=== PATIENT | male | born 1975 | race Caucasian/White ===

== ENCOUNTER 2020-03-10 12:37 | Observation (INO) | payer BC ==
[2020-03-10] MEDS ORDERED: hydrALAZINE HCL 20 MG/ML 1 ML VIAL IVP STA (13:02)
--- NOTE | 2020-03-10 13:08 | ED ---
General Adult HPI - General Chief complaint: Dizziness Stated complaint: Dizziness Time Seen by Provider: 03/10/20 12:45 Source: patient, EMS, RN notes reviewed, old records reviewed Mode of arrival: EMS Limitations: no limitations - History of Present Illness Initial comments: This is a 44-year-old male who is transferred to us from urgent care facility. Patient had an episode at work where he was passed out and he felt that he was going to pass out for about 15 minutes. Patient's blood pressures also high and he is supposed to be on blood pressure medicines but he does not take them. Patient states since the incident he's felt a little foggy but other than that feels pretty good. Patient to CAT scan of the other facility which was of his h ead and it was normal. Patient denied any chest pain patient denies shortness of breath or difficulty breathing. Patient denies any palpitations. Patient denies any abdominal pain patient has nausea vomiting diarrhea. Patient denies any recent fever chills or cough. Patient denies any swelling to the legs or calf tenderness. - Related Data Home Medications Medication Instructions Recorded Confirmed No Known Home Medications 03/10/20 03/10/20 Allergies Allergy/AdvReac Type Severity Reaction Status Date / Time No Known Allergies Allergy Verified 03/10/20 13:45 Review of Systems ROS Statement: Those systems with pertinent positive or pertinent negative responses have been documented in the HPI. ROS Other: All systems not noted in ROS Statement are negative. Past Medical History Past Medical History: Hypertension History of Any Multi-Drug Resistant Organisms: None Reported Past Surgical History: Bariatric Surgery Past Psychological History: No Psychological Hx Reported Smoking Status: Never smoker Past Alcohol Use History: None Reported Past Drug Use History: None Reported General Exam - General Exam Comments Initial Comments: GENERAL: Patient is well-developed and well-nourished. Patient is nontoxic and well- hydrated and is in mild distress. ENT: Neck is soft and supple. No significant lymphadenopathy is noted. Oropharynx is clear. Moist mucous membranes. Neck has full range of motion without eliciting any pain. EYES: The sclera were anicteric and conjunctiva were pink and moist. Extraocular movements were intact and pupils were equal round and reactive to light. Eyelids were unremarkable. PULMONARY: Unlabored respirations. Good breath sounds bilaterally. No audible rales rhonchi or wheezing was noted. CARDIOVASCULAR: There is a regular rate and rhythm without any murmurs gallops or rubs. ABDOMEN: Soft and nontender with normal bowel sounds. No palpable organomegaly was noted. There is no palpable pulsatile mass. SKIN: Skin is clear with no lesions or rashes and otherwise unremarkable. NEUROLOGIC: Patient is alert and oriented x3. Cranial nerves II through XII are grossly intact. Motor and sensory are also intact. Normal speech, volume and content. Symmetrical smile. . MUSCULOSKELETAL: Normal extremities with adequate strength and full range of motion. No lower extremity swelling or edema. No calf tenderness. LYMPHATICS: No significant lymphadenopathy is noted PSYCHIATRIC: Normal psychiatric evaluation. Limitations: no limitations Course Vital Signs 03/10/20 03/10/20 03/10/20 12:42 13:02 13:29 Temperature 98.9 F Pulse Rate 71 Respiratory 18 Rate Blood Pressure 172/115 159/109 162/106 O2 Sat by Pulse 97 Oximetry 03/10/20 03/10/20 03/10/20 13:30 14:02 14:14 Temperature Pulse Rate 91 51 L Respiratory 18 Rate Blood Pressure 164/102 94/51 O2 Sat by Pulse 96 Oximetry 03/10/20 14:18 Temperature Pulse Rate 75 Respiratory 18 Rate Blood Pressure 149/95 O2 Sat by Pulse 97 Oximetry Medical Decision Making - Medical Decision Making EKG shows normal sinus rhythm at 96 bpm ND interval 152 QRS is 104 QT interval 366 QTC is 462. Patient's EKG shows no ST segment elevation or depression or T wave abnormalities are noted. Patient received a dose of hydralazine for the high blood pressure at about 40 minutes after he received that he became lightheaded and almost passed out and his blood pressure dropped down to 98 only stayed there for a minute or 2 and then came back up to its baseline. Patient currently feels back to his baseline as well. Patient stated he felt no pain no shortness of breath no palpitations. Patient's heart rate did not change on the monitor - Lab Data Lab Results 03/10/20 03/10/20 Range/Units 13:00 13:00 D-Dimer 0.19 (<0.60) mg/L FEU Troponin I <0.012 (0.000-0.034) ng/mL Disposition Clinical Impression: Hypertensive urgency, Near syncope Disposition: ADMITTED IP TO THIS HOSP Referrals: Inocencio Richards MD [Primary Care Provider] - 1-2 days Time of Disposition: 14:24
[2020-03-10] MEDS ORDERED: SODIUM CHLORIDE 0.9% 500 ML 500 ML IV STA (14:43)
[2020-03-10] MEDS ORDERED: ACETAMINOPHEN TAB 500 MG TAB PO PRN (16:29)
[2020-03-10] MEDS ORDERED: ALPRAZolam 0.25 MG TAB PO PRN (16:29)
[2020-03-10] MEDS ORDERED: TEMAZEPAM 15 MG CAP PO PRN (16:29)
[2020-03-10] MEDS ORDERED: cloNIDine HCL 0.1 MG TAB PO PRN (16:29)
[2020-03-10] MEDS: lisinopriL 10 MG TAB PO SCH ×2 (16:40→21:44)
[2020-03-10] MEDS: amLODIPine 10 MG TAB PO SCH (16:40)
--- NOTE | 2020-03-10 17:23 | US ---
EXAMINATION TYPE: US carotid duplex BILAT DATE OF EXAM: 03/10/2020 COMPARISON: NONE CLINICAL HISTORY: stroke. Pt states weakness, syncope EXAM MEASUREMENTS: RIGHT: Peak Systolic Velocity (PSV) cm/sec ----- Right CCA: 125.8 ----- Right ICA: 85.6 ----- Right ECA: 99.5 ICA/CCA ratio: 0.7 RIGHT: End Diastole cm/sec ----- Right CCA: 24.1 ----- Right ICA: 26.3 ----- Right ECA: 14.1 LEFT: Peak Systolic Velocity (PSV) cm/sec ----- Left CCA: 147.0 ----- Left ICA: 68.8 ----- Left ECA: 95.3 ICA/CCA ratio: 0.5 LEFT: End Diastole cm/sec ----- Left CCA: 24.8 ----- Left ICA: 30.3 ----- Left ECA: 16.3 VERTEBRALS (direction of flow): Right Vertebral: Antegrade Left Vertebral: Antegrade Rhythm: Normal No significant stenosis seen IMPRESSION: There is antegrade flow in the vertebral arteries. The images and measurements suggest less than 10% stenosis in both internal carotid arteries. Criteria for Assigning % of Stenosis / Diameter reduction (Estimation based on the indirect measurements of the internal carotid artery velocities (ICA PSV). 1. Normal (no stenosis)=ICA PSV < 125 cm/s: ratio < 2.0: ICA EDV<40 cm/s. 2. Less than 50% stenosis=ICA PSV < 125 cm/s: ratio < 2.0: ICA EDV<40 cm/s. 3. 50 to 69% stenosis=ICA PSV of 125 to 230 cm/s: ration 2.0 ? 4.0: ICA EDV 40-100 cm/s. 4. Greater than 70% stenosis to near occlusion= ICA PSV > 230 cm/s: ratio > 4.0: ICA EDV > 100 cm/s. 5. Near occlusion= ICA PSV velocities may be low or undetectable: variable ratio and ICA EDV. 6. Total occlusion=unable to detect flow.
--- NOTE | 2020-03-10 18:51 | HP ---
HISTORY AND PHYSICAL DATE OF SERVICE: 03/10/2020 CHIEF COMPLAINTS: Dizziness and presyncope. HISTORY OF PRESENT ILLNESS: This 44-year-old gentleman with a past medical history of multiple medical problems, including hypertension, history of bariatric surgery, being followed by Dr. Cliff Richards in the outpatient setting, was sitting in his office. The patient felt dizzy, almost like passing out. It lasted for about 5 minutes. Patient had recurrence of symptoms. Also blood pressure was found to be high. After hydralazine, however, the blood pressure went down to 94/54 and the patient was also bradycardic. Patient was admitted for further evaluation and treatment. Patient had a similar episode about 5 years ago and was evaluated at [facility]. They did not find any particular cause for that, according to the family. Reports are not available at this time. There is no history of any fever, rigor or chills. No history of any chest pain, palpitations, hematochezia or melena at this time. PAST MEDICAL HISTORY: Hypertension, history of bariatric surgery. MEDICATIONS PRIOR TO ADMISSION: None. ALLERGIES: NONE. FAMILY HISTORY: No history of heart disease or strokes in the family. SOCIAL HISTORY: No history of smoking. Occasional alcohol intake. REVIEW OF SYSTEMS: ENT: As mentioned earlier. CARDIOVASCULAR SYSTEM: No angina, palpitations. RESPIRATORY SYSTEM: No cough, hemoptysis. GI: No nausea, vomiting. : No dysuria or retention. NERVOUS SYSTEM: As mentioned earlier. ALLERGY/IMMUNOLOGY: No asthma, hayfever. MUSCULOSKELETAL: As mentioned earlier. HEMATOLOGY/ONCOLOGY: No history of anemia. ENDOCRINE: No history of diabetes, hypothyroidism. CONSTITUTIONAL: As mentioned earlier. DERMATOLOGY: Negative. RHEUMATOLOGY: Negative. PSYCHIATRY: As mentioned earlier. PHYSICAL EXAMINATION: Patient alert and oriented x3. Pulse is 82, blood pressure 173/116, respiration 20, temperature 98.2, pulse ox 97% on room air. HEENT: Conjunctivae normal. Oral mucosa moist. NECK: No jugular venous distention. No carotid bruit. No lymph node enlargement. CARDIOVASCULAR SYSTEM: S1, S2 muffled. No S3. No S4. RESPIRATORY SYSTEM: Breath sounds diminished at the bases. No rhonchi. No crackles. ABDOMEN: Soft, non-tender. No mass palpable. LEGS: No edema. No swelling. NERVOUS SYSTEM: Higher functions as mentioned earlier. Moves all 4 limbs. No focal motor or sensory deficit. LYMPHATICS: No lymph node palpable in neck, axillae or groin. SKIN: No ulcer, rash, bleeding. JOINTS: No active deforming arthropathy. LABS: D-dimer is 0.19. Troponin less than 0.012. EKG shows ST-T changes. ASSESSMENT: 1. Dizziness for evaluation; possibly accelerated hypertension and hypertensive urgency. 2. Rule out transient ischemic attack. 3. Rule out cardiac arrhythmia. 4. Hypertension. 5. Obesity with body mass index of 44.9. 6. History of bariatric surgery. RECOMMENDATIONS AND DISCUSSION: In this 44-year-old gentleman who presented with multiple medical issues, at this time I recommend to continue current medications, continue symptomatic treatment. Otherwise, p.r.n. hydralazine. Cardiology and neurology evaluations. Will initiate antihypertensive medications. Basic evaluation, including carotid Doppler and ultrasound. Cholesterol panel. The prognosis is guarded because of the multiple complex medical issues. Further recommendations to follow. A copy of this dictation is being forwarded to Dr. Cliff Richards, who is the primary physician. MMODL / IJN: [id number] /
[2020-03-10] MEDS: HEPARIN SODIUM,PORCINE 5,000 UNIT/ML 1 ML VIAL SQ SCH (21:44)
[2020-03-11 06:23] LABS: Basophils % (A) 0 %; Eosinophils # (A) 0.4 k/uL (0-0.7); Eosinophils % (A) 4 %; HCT 43.5 % (39.0-53.0); HGB 14.5 gm/dL (13.0-17.5); Lymphocytes % (A) 20 %; MCH 29.5 pg (25.0-35.0); MCHC 33.3 g/dL (31.0-37.0); MCV 88.6 fL (80.0-100.0); Monocytes # (A) 0.7 k/uL (0-1.0); Monocytes % (A) 6 %; Neutrophils # (A) 6.8 k/uL (1.3-7.7); Neutrophils % (A) 68 %; Platelet Count 217 k/uL (150-450); RBC 4.92 m/uL (4.30-5.90); RDW 13.8 % (11.5-15.5)
[2020-03-11] MEDS: PANTOPRAZOLE 40 MG TABLET PO SCH (06:31)
[2020-03-11 06:36] LABS: African American GFR (CKD) >90 (>60 ml/min/1.73 sqM); Anion Gap 8 mmol/L; Blood Urea Nitrogen 14 mg/dL (9-20); Calcium 9.1 mg/dL (8.4-10.2); Carbon Dioxide 25 mmol/L (22-30); Chloride 105 mmol/L (98-107); Cholesterol 177 mg/dL (<200); Glucose 110 mg/dL (74-99); HDL Cholesterol 30 mg/dL (40-60); LDL Cholesterol,Calculated 118 mg/dL (0-99); Non-African American GFR(CKD) 89 (>60 ml/min/1.73 sqM); Potassium 4.1 mmol/L (3.5-5.1); Sodium 138 mmol/L (137-145); Triglycerides 143 mg/dL (<150)
[2020-03-11] MEDS: amLODIPine 10 MG TAB PO SCH (08:52)
[2020-03-11] MEDS: lisinopriL 10 MG TAB PO SCH ×2 (08:52→20:13)
[2020-03-11] MEDS: HEPARIN SODIUM,PORCINE 5,000 UNIT/ML 1 ML VIAL SQ SCH ×2 (08:53→20:14)
--- NOTE | 2020-03-11 10:00 | ECHOF ---
Referral Reason:Stroke MEASUREMENTS -------- HEIGHT: 185.4 cm WEIGHT: 158.8 kg BP: RVIDd: 3.3 cm (< 3.3) IVSd: 1.6 cm (0.6 - 1.1) LVIDd: 4.4 cm (3.9 - 5.3) LVPWd: 1.8 cm (0.6 - 1.1) IVSs: 2.1 cm LVIDs: 2.0 cm LVPWs: 2.3 cm LA Diam: 2.7 cm (2.7 - 3.8) Ao Diam: 3.6 cm (2.0 - 3.7) AV Cusp: 2.0 cm (1.5 - 2.6) MV EXCURSION: 24.989 mm (> 18.000) MV EF SLOPE: 81 mm/s (70 - 150) EPSS: 0.4 cm MV E Rodriguez: 0.49 m/s MV DecT: 227 ms MV A Rodriguez: 0.71 m/s MV E/A Ratio: 0.69 RAP: 5.00 mmHg RVSP: 9.42 mmHg FINDINGS -------- Sinus rhythm. Morbid Obesity There is severe concentric left ventricular hypertrophy. Overall left ventricular systolic function is normal with, an EF between 55 - 60 %. The right ventricle is normal in size. The left atrial size is normal. The right atrial size is normal. 5.0mg OF Lumason UTLIZED: 2 OR MORE WALL SEGMENTS NOT VISUALIZED. The aortic valve was not well visualized. Mild mitral regurgitation is present. Mild tricuspid regurgitation present. Right ventricular systolic pressure is normal at < 35 mmHg. The pulmonic valve was not well visualized. The aortic root size is normal. There is a trivial pericardial effusion present. CONCLUSIONS -------- 1. Sinus rhythm. 2. Morbid Obesity 3. There is severe concentric left ventricular hypertrophy. 4. Overall left ventricular systolic function is normal with, an EF between 55 - 60 %. 5. The right ventricle is normal in size. 6. The left atrial size is normal. 7. The right atrial size is normal. 8. 5.0mg OF Lumason UTLIZED: 2 OR MORE WALL SEGMENTS NOT VISUALIZED. 9. The aortic valve was not well visualized. 10. Mild mitral regurgitation is present. 11. Mild tricuspid regurgitation present. 12. Right ventricular systolic pressure is normal at < 35 mmHg. 13. The pulmonic valve was not well visualized. 14. There is a trivial pericardial effusion present. [employer]: Bri Sheridan RDCS
--- NOTE | 2020-03-11 10:34 | P.CRDCN ---
History of Present Illness History of present illness: HISTORY OF PRESENTING ILLNESS This is a pleasant 44-year-old male past medical history significant for hypertension, morbid obesity family history of premature coronary artery dis ease. 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 He does not currently take prescribed lisinopril. We have been asked to see in consultation for near- syncope. He states yesterday while at work he started feeling acutely light headed like he was going to pass out. Lasted acutely for about 5 minutes and did improve but he still didn't feel entirely normal. He went to urgent care initially and was transferred here for further evaluation due to ongoing hypertension. On arrival here blood pressure was 172/115. He has been diagnosed with hypertension in the past and was taking lisinopril, but has stopped taking it. He was given 20 mg of IV hydralazine in the emergency department which d ropped his blood pressure 94/51. He states he had an episode of feeling extremely lightheaded similar to how he felt earlier that morning. He was diaphoretic and nauseated. He denies having symptoms of chest discomfort, shortness of breath or palpitations. Echocardiogram obtained reveals preserved LV systolic function with ejection fraction 55-60%, mild MR and mild TR noted. There is severe concentric LVH. He has been initiated on amlodipine 10 mg daily and lisinopril 10 mg twice a day. DIAGNOSTICS EKG reveals sinus mechanism with T-wave inversions in the high lateral leads on initial EKG and T-wave inversions in the lateral leads and repeat this morning. Carotid doppler reveals antegrade flow in the vertebral arteries, less than 10% stenosis bilaterally of the carotids. Laboratory reviewed, CBC unremarkable, d-dimer 0.19, sodium 138, potassium 4.1, creatinine 1.02, cardiac enzymes negative 2, LDL 118. He currently takes no daily cardiac medications. REVIEW OF SYSTEMS At the time of my exam: CONSTITUTIONAL: Denies fever or chills. CARDIOVASCULAR: Denies chest pain, shortness of breath, orthopnea, PND or palpitations. RESPIRATORY: Denies cough. GASTROINTESTINAL: Denies abdominal pain, diarrhea, constipation, nausea or vomiting. MUSCULOSKELETAL: Denies myalgias. NEUROLOGIC: Denies numbness, tingling or weakness. ENDOCRINE: Denies fatigue, weight change, polydipsia or polyurina. GENITOURINARY: Denies burning, hematuria or urgency with micturation. HEMATOLOGIC: Denies history of anemia or bleeding. PHYSICAL EXAMINATION Blood pressure 157/90 heart rate 81 afebrile and maintaining oxygen saturation on room air. CONSTITUTIONAL: No apparent distress. Morbidly obese. HEENT: Head is normocephalic. Pupils are equal, round. Sclerae anicteric. Mucous membranes of the mouth are moist. No JVD. No carotid bruit. CHEST EXAMINATION: Lungs are clear to auscultation. No chest wall tenderness is noted on palpation or with deep breathing. HEART EXAMINATION: Regular rate and rhythm. S1, S2 heard. No murmurs, gallops or rub. ABDOMEN: Soft, nontender. Positive bowel sounds. EXTREMITIES: 2+ peripheral pulses, no lower extremity edema and no calf tenderness. NEUROLOGIC EXAMINATION: Patient is awake, alert and oriented x3. ASSESSMENT Near syncope Uncontrolled hypertension Morbid obesity, BMI 44 Noncompliance PLAN An acute coronary event has some ruled out. Recommend proceeding with stress echocardiogram to assess for stress-induced cardiac ischemia. On discharge apply an event monitor to assess for an acute arrhythmia. The importance of anti-hypertensive therapy compliance discussed at length. Recommend lifestyle modifications for lowering of LDL cholesterol and weight loss. Thank you kindly for this consultation. Nurse Practitioner note has been reviewed, I agree with a documented findings and plan of care. Patient was seen and examined. Past Medical History Past Medical History: Hypertension History of Any Multi-Drug Resistant Organisms: None Reported Past Surgical History: Bariatric Surgery Past Anesthesia/Blood Transfusion Reactions: No Reported Reaction Past Psychological History: No Psychological Hx Reported Smoking Status: Never smoker Past Alcohol Use History: None Reported Past Drug Use History: None Reported Medications and Allergies Home Medications Medication Instructions Recorded Confirmed Type No Known Home Medications 03/10/20 03/10/20 History Allergies Allergy/AdvReac Type Severity Reaction Status Date / Time No Known Allergies Allergy Verified 03/10/20 13:45 Physical Exam Vitals: Vital Signs Temp Pulse Pulse Resp BP BP BP 03/11/20 03:00 98 F 81 18 157/90 03/10/20 21:00 98 F 80 18 151/94 03/10/20 18:08 91 154/101 03/10/20 16:38 76 162/99 03/10/20 15:30 80 168/112 03/10/20 15:24 98.2 F 82 20 173/116 03/10/20 15:00 80 20 03/10/20 14:48 75 16 158/99 03/10/20 14:18 75 18 149/95 03/10/20 14:14 51 L 94/51 03/10/20 14:02 164/102 03/10/20 13:30 91 18 03/10/20 13:29 162/106 03/10/20 13:02 159/109 03/10/20 12:42 98.9 F 71 18 172/115 Pulse Ox 03/11/20 03:00 95 03/10/20 21:00 95 03/10/20 18:08 03/10/20 16:38 03/10/20 15:30 03/10/20 15:24 97 03/10/20 15:00 03/10/20 14:48 98 03/10/20 14:18 97 03/10/20 14:14 03/10/20 14:02 03/10/20 13:30 96 03/10/20 13:29 03/10/20 13:02 03/10/20 12:42 97 Intake and Output 03/10/20 03/11/20 03/11/20 22:59 06:59 14:59 Intake Total 1640 450 Balance 1640 450 Intake: Amount of Fluid Infused ( 500 ml) Oral 1140 450 Other: Voiding Method Toilet Toilet # Voids 2 1 Weight 158.757 kg Results 03/11/20 06:10 03/11/20 06:10 Cardiac Enzymes 03/10/20 Range/Units 13:00 Troponin I <0.012 (0.000-0.034) ng/mL Lipids 03/11/20 Range/Units 06:10 Triglycerides 143 (<150) mg/dL Cholesterol 177 (<200) mg/dL HDL Cholesterol 30 L (40-60) mg/dL CBC 03/11/20 Range/Units 06:10 WBC 10.0 (3.8-10.6) k/uL RBC 4.92 (4.30-5.90) m/uL Hgb 14.5 (13.0-17.5) gm/dL Hct 43.5 (39.0-53.0) % Plt Count 217 (150-450) k/uL Comprehensive Metabolic Panel 03/11/20 Range/Units 06:10 Sodium 138 (137-145) mmol/L Potassium 4.1 (3.5-5.1) mmol/L Chloride 105 (98-107) mmol/L Carbon Dioxide 25 (22-30) mmol/L BUN 14 (9-20) mg/dL Creatinine 1.02 (0.66-1.25) mg/dL Glucose 110 H (74-99) mg/dL Calcium 9.1 (8.4-10.2) mg/dL Current Medications Generic Name Dose Route Start Last Admin Trade Name Freq PRN Reason Stop Dose Admin Acetaminophen 500 mg 03/10/20 16:29 03/10/20 21:41 Tylenol Tab PO 500 mg Q6HR PRN Administration Fever and/ or Pain Alprazolam 0.25 mg 03/10/20 16:29 Xanax PO TID PRN Anxiety Amlodipine Besylate 10 mg 03/10/20 16:30 03/10/20 16:40 Norvasc PO 10 mg DAILY STEVIE Administration Clonidine 0.1 mg 03/10/20 16:29 03/11/20 06:31 Catapres PO 0.1 mg Q4HR PRN Administration Hypertension Heparin Sodium (Porcine) 5,000 unit 03/10/20 21:00 03/10/20 21:44 Heparin SQ Not Given Q12HR STEVIE Lisinopril 10 mg 03/10/20 16:28 03/10/20 21:44 Zestril PO 10 mg BID STEVIE Administration Pantoprazole Sodium 40 mg 03/11/20 07:30 03/11/20 06:31 Protonix PO 40 mg [id number] STEVIE Administration Temazepam 15 mg 03/10/20 16:29 Restoril PO HS PRN Insomnia Intake and Output 03/10/20 03/11/20 03/11/20 22:59 06:59 14:59 Intake Total 1640 450 Balance 1640 450 Intake: Amount of Fluid Infused ( 500 ml) Oral 1140 450 Other: Voiding Method Toilet Toilet # Voids 2 1 Weight 158.757 kg 03/11/20 06:10 03/11/20 06:10
--- NOTE | 2020-03-11 10:57 | P.CNNES ---
History of Present Illness Consult date: 03/10/20 Requesting physician: Lindsay Manzo Reason for Consult: Near syncope History of Present Illness: Patient is a 44-year-old male, who was transferred from an urgent care facility after he had an episode at work where he had a near syncopal episode. Patient states that this morning he woke up, was feeling fine, took shower, and went to work and arrived at 8:10 AM. Shortly after he was sitting in the desk, when he felt dizzy, lightheaded and everything started closing on him. These bad symptoms lasted for 5 minutes and then took another 5-10 minutes for the symptoms to slowly improve. There was no chest pain or shortness of breath. Denies any focal symptoms like slurred speech facial droop double vision, focal numbness tingling or weakness. He himself drove to an urgent care. Patient underwent computed tomography scan of the head which was normal. EKG showed normal sinus rhythm. Blood pressure on arrival was 192/79. Chest x-ray negative. Patient had CBC, UA, PT/PTT, Chem-20 and troponin all normal or negative. Patient was transferred to [facility] for further evaluation. When patient arrived to [facility], his blood pressure was 172/115 and pulse rate of 71. He was given some medication for high blood pressure. Shortly after in the ER, patient was sitting when suddenly he started feeling similar symptoms of lightheadedness, dizziness and near syncopal. Apparently his blood pressure joana pped to 94/51 and heart rate dropped to 51 at the time when he was symptomatic. (Just prior to giving medication, his blood pressure was 164/102 and pulse rate 91). The symptoms lasted for 5-7 minutes and then resolved. Patient was admitted for further observation. At present he feels perfectly fine. Denies any focal symptoms. He states that once before, about 5 years ago he had a similar event when he was sitting for his son's event, did not feel good, almost passed out. He was taken to the hospital, and underwent some testing and was observed and released. No cause was found. Carotid Doppler showed antegrade flow in vertebral arteries. No significant stenosis. Patient's CBC, Chem-7 is normal. Total cholesterol 177, LDL 118, HDL 30 and triglycerides 143. Troponin negative. Review of Systems At present completely unremarkable. All 14 point review of systems reviewed and unremarkable. Past Medical History Past Medical History: Hypertension History of Any Multi-Drug Resistant Organisms: None Reported Past Surgical History: Bariatric Surgery Past Anesthesia/Blood Transfusion Reactions: No Reported Reaction Past Psychological History: No Psychological Hx Reported Smoking Status: Never smoker Past Alcohol Use History: None Reported Past Drug Use History: None Reported Medications and Allergies Home Medications Medication Instructions Recorded Confirmed Type No Known Home Medications 03/10/20 03/10/20 History Allergies Allergy/AdvReac Type Severity Reaction Status Date / Time No Known Allergies Allergy Verified 03/10/20 13:45 Physical Examination - Vital Signs Vital Signs: Vital Signs Temp Pulse Pulse Resp BP BP BP 03/10/20 18:08 91 154/101 03/10/20 16:38 76 162/99 03/10/20 15:30 80 168/112 03/10/20 15:24 98.2 F 82 20 173/116 03/10/20 15:00 80 20 03/10/20 14:48 75 16 158/99 03/10/20 14:18 75 18 149/95 03/10/20 14:14 51 L 94/51 03/10/20 14:02 164/102 03/10/20 13:30 91 18 03/10/20 13:29 162/106 03/10/20 13:02 159/109 03/10/20 12:42 98.9 F 71 18 172/115 Pulse Ox 03/10/20 18:08 03/10/20 16:38 03/10/20 15:30 03/10/20 15:24 97 03/10/20 15:00 03/10/20 14:48 98 03/10/20 14:18 97 03/10/20 14:14 03/10/20 14:02 03/10/20 13:30 96 03/10/20 13:29 03/10/20 13:02 03/10/20 12:42 97 Intake and Output 03/10/20 03/10/20 03/10/20 06:59 14:59 22:59 Intake Total 740 Balance 740 Intake: Amount of Fluid Infused ( 500 ml) Oral 240 Other: Voiding Method Toilet Weight 158.757 kg 158.757 kg On examination patient is a middle aged male, in no acute distress. Patient is alert awake oriented to time pleasant person. Speech and language functions are normal. Attention and concentration fund of knowledge is adequate. On cranial nerve examination pupils are round and reactive to light, visual jett are full on confrontation. Extraocular muscles are intact with no nystagmus. Face is symmetric, tongue protrudes the midline. Palatal elevation and sensation normal. Hearing and shoulder shrug normal. On muscle strength testing there is no pronator drift and the strength is normal in arms and legs distally and proximally. Reflexes are 1+ and plantars downgoing. Sensory touch is equal. No ataxia for [id number] testing. Tone and bulk of muscles normal. Gait normal. No obvious bruit, S1 and S2 audible. Abdomen soft nontender. Chest is clear. Results - Laboratory Findings CBC and BMP: 03/11/20 06:10 03/11/20 06:10 Assessment and Plan Assessment: * Near syncopal spells 2. The first one was probably related to uncontrolled blood pressure. The second one (while in the ER) likely occurred due to acute drop in pulse and blood pressure after receiving hydralazine IV. * Hypertension, uncontrolled * Obesity * Noncompliance * Dyslipidemia Plan: * Patient had a normal carotid Doppler. * Patient's computed tomography scan of the head, current neurological examination are normal. * No other neurological workup indicated. * Cardiology on board to address hypertension, and to rule out cardiac event.
--- NOTE | 2020-03-11 12:33 | P.STRESS ---
- Stress Test Note Stress Test Results/Findings: Exam Performed: stress echo exercise with con Exam Date: 03/11/20 Reason for Exam: DIZZINESS Height: 6 ft 2 in Weight: 158.76 kg Protocol: EMANUEL Stage: 3 Duration of Exercise: 6:25 Resting Heart Rate: 89 Resting Blood Pressure: 143/93 Maximum Achieved Heart Rate: 159 Maximum Achieved Blood Pressure: 220/65 85% PMHR: 150 100% PMHR: 176 METS: 7.7 Technologist Comment: Stress Test Results/Findings: This is a 44-year-old gentleman with symptoms of exertional shortness of breath, being evaluated for cardiac status. Patient also has family history of ischemic heart disease. Stress data.: Baseline EKG showed sinus rhythm with normal SD and QRS duration. Blood pressure at rest is 143/93 with pulse rate of 89. Patient walked on a Emanuel protocol for 6 minutes and 25 seconds achieving a maximal rate of 159 with a blood pressure 220/65. EKGs taken during and after exercise did not reveal any significant changes from baseline. Echo data: Baseline echo images showed normal wall motion and thickening. Exercise echo images showed augmentation of wall motion and thickening in all th e segments. Final impression: #1. Negative stress test #2. Negative stress echo
[2020-03-11] MEDS: ATORVASTATIN 10 MG TAB PO SCH (14:32)
--- NOTE | 2020-03-11 16:23 | PN ---
PROGRESS NOTE DATE OF SERVICE: 03/11/2020 This 44-year-old gentleman admitted with dizziness and presyncope also had hypertensive urgency. Cardiology has seen the patient. A stress was also done. A 2D echo with Doppler done today showed ejection fraction about 55% to 60%. The stress test was read as showing no abnormality in the stress echo in the exercise-induced images. The patient also had a neurology evaluation and a carotid Doppler was also done. Carotid Doppler showed less than 10% stenosis in both internal carotid arteries. No chest pain. No palpitations. No fever. PHYSICAL EXAMINATION: Alert and oriented x3. Pulse 75, blood pressure 131/84, respirations 16, temperature 98.5, pulse ox 95% on room air. HEENT: Conjunctivae normal. NECK: No jugular venous distention. CARDIOVASCULAR SYSTEM: S1, S2 muffled. RESPIRATORY SYSTEM: Breath sounds diminished at the bases. No rhonchi. No crackles. ABDOMEN: Soft, non-tender. LEGS: No edema. No swelling. NERVOUS SYSTEM: No focal deficit. LABS: CBC within normal limits. LDL is 118. Glucose 110. ASSESSMENT: 1. Dizziness for evaluation, possibly accelerated hypertension with hypertensive urgency. 2. Rule out transient ischemic attack. 3. Rule out cardiac arrhythmia. 4. Negative stress echo currently. 5. Hypertension. 6. Hyperlipidemia. 7. Obesity with body mass index of 44.9. 8. History of bariatric surgery. RECOMMENDATIONS AND DISCUSSION: I recommend to continue current medications, continue with the monitoring, symptomatic treatment. I would recommend a small dose of Lipitor and continue with the Norvasc as well as lisinopril and p.r.n. medications. Prognosis is guarded because of multiple complex medical issues. Further recommendations to follow. Increase ambulation. PT/OT evaluation. Neurology input appreciated. MMODL / IJN: [id number] /
--- NOTE | 2020-03-11 18:56 | P.PN ---
Subjective Progress Note Date: 03/11/20 Patient feels fine. Offers no new complaints. No further syncopal spells or near syncope. No dizziness. Patient states he had undergone bariatric surgery in 2010. He was 400 pounds prior to the surgery. He lost weight down to 310 pounds, but has recently gained weight to 350 pounds. Objective - Vital Signs Vital signs: Vital Signs Temp 98.1 F 03/11/20 15:57 Pulse 85 03/11/20 15:57 Resp 16 03/11/20 15:57 BP 126/84 03/11/20 15:57 Pulse Ox 94 L 03/11/20 15:57 Intake & Output 03/10/20 03/11/20 03/11/20 18:59 06:59 18:59 Intake Total 740 1350 250 Balance 740 1350 250 Weight 158.757 kg 158.76 kg Intake: Amount of Fluid Infused ( 500 ml) Oral 240 1350 250 Other: Voiding Method Toilet Toilet Toilet # Voids 1 2 - Exam Nonfocal. - Labs CBC & Chem 7: 03/11/20 06:10 03/11/20 06:10 Labs: Abnormal Lab Results - Last 24 Hours (Table) 03/11/20 Range/Units 06:10 Glucose 110 H (74-99) mg/dL LDL Cholesterol, Calc 118 H (0-99) mg/dL HDL Cholesterol 30 L (40-60) mg/dL Assessment and Plan Assessment: * Near syncopal spells 2. The first one was probably related to uncontrolled blood pressure. The second one (while in the ER) likely occurred due to acute drop in pulse and blood pressure after receiving hydralazine IV. * Hypertension, uncontrolled * Obesity * Noncompliance * Dyslipidemia Plan: * Patient had a normal carotid Doppler. * Patient's computed tomography scan of the head, current neurological examination are normal. * No other neurological workup indicated. * Cardiology on board. Stress test normal. Patient will undergo placement of event monitor for 2 weeks. * Neurology will sign off. Please call neurology if any other concerns.
[2020-03-12] MEDS: PANTOPRAZOLE 40 MG TABLET PO SCH (06:36)
[2020-03-12 07:16] LABS: Basophils # (A) 0.1 k/uL (0-0.2); Basophils % (A) 1 %; Eosinophils # (A) 0.4 k/uL (0-0.7); Eosinophils % (A) 4 %; HCT 44.2 % (39.0-53.0); HGB 14.8 gm/dL (13.0-17.5); Lymphocytes # (A) 1.9 k/uL (1.0-4.8); Lymphocytes % (A) 20 %; MCH 29.6 pg (25.0-35.0); MCHC 33.4 g/dL (31.0-37.0); MCV 88.5 fL (80.0-100.0); Monocytes # (A) 0.7 k/uL (0-1.0); Monocytes % (A) 7 %; Neutrophils # (A) 6.4 k/uL (1.3-7.7); Neutrophils % (A) 67 %; Platelet Count 202 k/uL (150-450); RBC 4.99 m/uL (4.30-5.90); RDW 13.9 % (11.5-15.5); WBC 9.6 k/uL (3.8-10.6)
[2020-03-12 07:26] LABS: Calcium 9.2 mg/dL (8.4-10.2); Potassium 4.2 mmol/L (3.5-5.1)
[2020-03-12] MEDS: amLODIPine 10 MG TAB PO SCH (08:33)
[2020-03-12] MEDS: ATORVASTATIN 10 MG TAB PO SCH (08:33)
[2020-03-12] MEDS: lisinopriL 10 MG TAB PO SCH (08:34)
[2020-03-12 08:36] VITALS: RESP 16
[2020-03-12] MEDS ORDERED: lisinopriL 10 MG TAB PO STA (09:05)
[2020-03-12] MEDS: HEPARIN SODIUM,PORCINE 5,000 UNIT/ML 1 ML VIAL SQ SCH (12:03)
--- NOTE | 2020-03-12 12:58 | P.PN ---
Subjective HISTORY OF PRESENTING ILLNESS This is a pleasant 44-year-old male past medical history significant for hypertension, morbid obesity family history of premature coronary artery disease. 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 He underwent a stress test yesterday that was unremarkable and negative for stress induced ischemia. Event monitor was applied. Blood pressures have continued to be mildly elevated. This morning as 166/104. Currently maintained on lisinopril 10 mg BID and amlodipine 10 mg daily. He is seen and examined sitting up in bed in no acute distress. He denies chest pain, shortness of breath, dizziness or palpitations. PHYSICAL EXAMINATION CONSTITUTIONAL: No apparent distress. Morbidly obese. HEENT: Head is normocephalic. Pupils are equal, round. Sclerae anicteric. Mucous membranes of the mouth are moist. No JVD. No carotid bruit. CHEST EXAMINATION: Lungs are clear to auscultation. No chest wall tenderness is noted on palpation or with deep breathing. HEART EXAMINATION: Regular rate and rhythm. S1, S2 heard. No murmurs, gallops or rub. EXTREMITIES: 2+ peripheral pulses, no lower extremity edema and no calf tenderness. ASSESSMENT Near syncope Uncontrolled hypertension Morbid obesity, BMI 44 Noncompliance PLAN Increase lisinopril to 20 mg BID. Stable for discharge. Event monitor applied, follow up with Dr. Woodward in 2-3 weeks. Nurse Practitioner note has been reviewed, I agree with a documented findings and plan of care. Patient was seen and examined. Objective - Vital Signs Vital signs: Vital Signs Temp 98.1 F 03/12/20 08:00 Pulse 72 03/12/20 08:00 Resp 16 03/12/20 08:00 BP 166/104 03/12/20 08:00 Pulse Ox 98 03/12/20 08:00 Intake & Output 03/11/20 03/12/20 03/12/20 18:59 06:59 18:59 Intake Total 250 900 Balance 250 900 Weight 158.76 kg Intake: Oral 250 450 Blood Product 450 Other: Voiding Method Toilet Toilet Toilet # Voids 2 2 2 - Labs CBC & Chem 7: 03/12/20 06:39 03/12/20 06:39 Labs: Abnormal Lab Results - Last 24 Hours (Table) 03/12/20 Range/Units 06:39 Glucose 103 H (74-99) mg/dL
--- NOTE | 2020-03-12 13:54 | ECHOS ---
Stress Test Results/Findings: Exam Performed: stress echo exercise with con Exam Date: 03/11/20 Reason for Exam: DIZZINESS Height: 6 ft 2 in Weight: 158.76 kg Protocol: EMANUEL Stage: 3 Duration of Exercise: 6:25 Resting Heart Rate: 89 Resting Blood Pressure: 143/93 Maximum Achieved Heart Rate: 159 Maximum Achieved Blood Pressure: 220/65 85% PMHR: 150 100% PMHR: 176 METS: 7.7 Technologist Comment: Stress Test Results/Findings: This is a 44-year-old gentleman with symptoms of exertional shortness of breath, being evaluated for cardiac status. Patient also has family history of ischemic heart disease. Stress data.: Baseline EKG showed sinus rhythm with normal [place] and QRS duration. Blood pressure at rest is 143/93 with pulse rate of 89. Patient walked on a Emanuel protocol for 6 minutes and 25 seconds achieving a maximal rate of 159 with a blood pressure 220/65. EKGs taken during and after exercise did not reveal any significant changes from baseline. Echo data: Baseline echo images showed normal wall motion and thickening. Exercise echo images showed augmentation of wall motion and thickening in all the segments. Final impression: #1. Negative stress test #2. Negative stress echo MTDD
[2020-03-12 14:27] VITALS: BP 153/93; PULSE 78; TEMP 98
[2020-03-12] MEDS ORDERED: lisinopriL 20 MG TAB PO SCH (21:00)
--- NOTE | 2020-03-13 05:24 | DS ---
DISCHARGE SUMMARY DATE OF SERVICE: 03/12/2020 FINAL DIAGNOSES: 1. Dizziness possibly acute accelerated hypertension with hypertensive urgency. 2. Transient ischemic attack, ruled out. 3. Cardiac arrhythmia, ruled out. 4. Negative stress echo on this admission. 5. Hypertension. 6. Hyperlipidemia. 7. Obesity with body mass index of 44.9. 8. History of bariatric surgery. DISCHARGE DISPOSITION: The patient will be discharged in stable condition with guarded prognosis. HISTORY OF PRESENT ILLNESS: This is a 44-year-old gentleman with a past medical history of multiple medical problems was admitted with dizziness. The patient was found to have accelerated hypertension which was controlled. The patient also had stress echo, ejection fraction was normal and stress test was negative. Seen by Cardiology and Neurology and the neurovascular workup was also negative. The patient will be discharged in a stable condition with guarded prognosis. On exam, vitals are stable. CARDIOVASCULAR: S1, S2 muffled. ABDOMEN: Soft. NERVOUS SYSTEM: No focal deficits. Blood pressure is currently 153/93. Recommend the patient to follow up blood pressure outpatient setting and follow up with Dr. Cliff Richards. DISCHARGE ADVICE: 1. Diet is cardiac. 2. Activity limited until followup. 3. Follow up with Dr. Cliff Richards in 2-3 days. 4. Follow up with Dr. Woodward as recommended. MEDICATIONS: 1. Lipitor 10 mg p.o. daily. 2. Norvasc 10 mg daily. 3. Zestril 20 mg b.i.d. Once again the patient will be discharged in a stable condition with guarded prognosis. MMODL / IJN: [id number] /
== END 2020-03-12 14:29 | disposition home or self-care (01) ==
LOC: EC 12:37 → 3NCARDOBS 14:24
PROVIDERS: ADMIT Hospitalist; ATTEND Hospitalist
DX: I16.0 Hypertensive urgency (principal); R55 Syncope and collapse; I10 Essential (primary) hypertension; Z91.19 Patient's noncompliance with other medical treatment and regimen; E66.01 Morbid (severe) obesity due to excess calories; Z68.41 Body mass index [BMI] 40.0-44.9, adult; Z98.84 Bariatric surgery status; I65.23 Occlusion and stenosis of bilateral carotid arteries; R00.1 Bradycardia, unspecified; E78.5 Hyperlipidemia, unspecified; Z82.49 Family history of ischemic heart disease and other diseases of the circulatory system; Z79.899 Other long term (current) drug therapy
CPT/HCPCS: 93005; 96374; 99285; 36415; 93306; 93270; 93351; 85379; 80061; 80048 ×2; 84484 ×2; 85025 ×2; 93880; G0378 ×3; U0003; J0360; Q9950

== ENCOUNTER 2022-11-13 14:30 | Emergency (ER) | payer BC ==
[2022-11-13] MEDS ORDERED: SODIUM CHLORIDE 0.9% 1,000 ML IV STA (15:12)
[2022-11-13] MEDS ORDERED: LIDOCAINE 5% PATCH TOPICAL STA (15:14)
[2022-11-13] MEDS ORDERED: KETOROLAC 15 MG/ML 1 ML VIAL IVP STA (15:14)
[2022-11-13] MEDS ORDERED: ORPHENADRINE 30 MG/ML 2 ML VIAL IVP STA (15:14)
[2022-11-13 15:34] LABS: Basophils % (A) 0 %; Eosinophils # (A) 0.4 k/uL (0-0.7); Eosinophils % (A) 4 %; HCT 41.5 % (39.0-53.0); HGB 14.2 gm/dL (13.0-17.5); Lymphocytes # (A) 1.5 k/uL (1.0-4.8); Lymphocytes % (A) 18 %; MCH 29.2 pg (25.0-35.0); MCHC 34.2 g/dL (31.0-37.0); MCV 85.3 fL (80.0-100.0); Monocytes # (A) 0.7 k/uL (0-1.0); Monocytes % (A) 8 %; Neutrophils # (A) 5.7 k/uL (1.3-7.7); Neutrophils % (A) 68 %; Platelet Count 204 k/uL (150-450); RBC 4.86 m/uL (4.30-5.90); RDW 13.9 % (11.5-15.5); WBC 8.4 k/uL (3.8-10.6)
[2022-11-13] MEDS ORDERED: ORPHENADRINE 30 MG/ML 2 ML VIAL IM STA (15:41)
[2022-11-13 15:59] LABS: Calcium 9.1 mg/dL (8.4-10.2); Potassium 4.3 mmol/L (3.5-5.1); Total Bilirubin 0.7 mg/dL (0.2-1.3); Total Protein 7.2 g/dL (6.3-8.2)
--- NOTE | 2022-11-13 16:02 | CT ---
EXAMINATION TYPE: CT abdomen pelvis wo con DATE OF EXAM: 11/13/2022 COMPARISON: None HISTORY: right back pain with hemturia CT DLP: 1998.4 mGycm Automated exposure control for dose reduction was used. Images obtained from the diaphragm to the floor of the pelvis with no contrast. Lung bases are clear. No pleural effusion. Heart size is normal. No pericardial effusion. Liver splee n pancreas, appear intact. The bowel gas are not dilated. There are clips from gastric surgery. There is no adrenal mass. Kidneys show normal size and contour. No hydronephrosis. Ureters are not di lated. There is 3 mm calculus lower pole left kidney. There is a 1.5 cm rounded hypodensity posterior upper pole right kidney. This is likely a cyst. There is no retroperitoneal adenopathy. Ureters are not dilated. Bladder distends smoothly. No inguin al hernia. There is prostatic calcification. No free fluid in the pelvis. No pelvic mass. Appendix is posterior and appears normal. The lumbar vertebrae have normal alignment. Posterior elements are intact. There is vacuum disc at L5 -S1. No compression fracture. The bony pelvis appears intact. The hip joints are intact. No inguinal hernia. There is no mesenteric edema. No ascites or free air. No sign of bowel obstruction. IMPRESSION: Nonobstructing left renal calculus. Normal appendix. Exophytic hypodense area in the posterior upper pole right kidney is likely a cyst. The density is 9 and consistent with a cyst.
--- NOTE | 2022-11-13 16:47 | ED ---
Back Pain HPI - General Chief Complaint: Back Pain/Injury Stated Complaint: Back Injury Time Seen by Provider: 11/13/22 14:53 Source: patient Limitations: no limitations - History of Present Illness Initial Comments: Patient is a 47-year-old male who presents to the emergency department for back pain. Patient states he was getting out of the shower when he felt his back give out 5 days ago. Patient denies injury and recent falls. Patient reports pain in his right lower back. There is no radiation. Pain worse with movement. He denies saddle anesthesia, loss of bowel or bladder function. No leg weakness. Patient went to urgent care today and apparently there was some blood in his urine. he states he was not sent to the emergency department because his symptoms were not consistent with kidney stone however his was adamant that he needs to come for evaluation for possible kidney stone. Patient denies fever, chills, abdominal pain, nausea, vomiting, gross blood in his urine, burning with urination. - Related Data Previous Rx's Medication Instructions Recorded Atorvastatin [Lipitor] 10 mg PO DAILY #30 tab 03/12/20 amLODIPine [Norvasc] 10 mg PO DAILY #30 tab 03/12/20 lisinopriL [Zestril] 20 mg PO BID #60 tab 03/12/20 Cyclobenzaprine [Flexeril] 10 mg PO TID PRN #15 tab 11/13/22 Ibuprofen [Motrin] 800 mg PO Q8HR PRN #30 tab 11/13/22 Lidocaine 5% Patch [Lidoderm 5% 1 patch TOPICAL DAILY PRN #7 patch 11/13/22 Patch] Allergies Allergy/AdvReac Type Severity Reaction Status Date / Time No Known Allergies Allergy Verified 11/13/22 14:42 Review of Systems ROS Statement: Those systems with pertinent positive or pertinent negative responses have been documented in the HPI. ROS Other: All systems not noted in ROS Statement are negative. Past Medical History Past Medical History: Hypertension History of Any Multi-Drug Resistant Organisms: None Reported Past Surgical History: Bariatric Surgery Past Anesthesia/Blood Transfusion Reactions: No Reported Reaction Past Psychological History: No Psychological Hx Reported Smoking Status: Never smoker Past Alcohol Use History: None Reported Past Drug Use History: None Reported General Exam Limitations: no limitations General appearance: alert, in no apparent distress Head exam: Present: atraumatic, normocephalic, normal inspection Respiratory exam: Present: normal lung sounds bilaterally. Absent: respiratory distress, wheezes, rales, rhonchi, stridor Cardiovascular Exam: Present: regular rate, normal rhythm, normal heart sounds. Absent: systolic murmur, diastolic murmur, rubs, gallop, clicks GI/Abdominal exam: Present: soft, normal bowel sounds. Absent: distended, tenderness, guarding, rebound, rigid Extremities exam: Present: normal inspection, full ROM, normal capillary refill Neurological exam: Present: alert, oriented X3, CN II-XII intact Psychiatric exam: Present: normal affect, normal mood Skin exam: Present: warm, dry, intact, normal color. Absent: rash Course Vital Signs 11/13/22 11/13/22 14:39 16:59 Temperature 97.9 F 98.1 F Pulse Rate 86 83 Respiratory 20 14 Rate Blood Pressure 184/104 176/89 O2 Sat by Pulse 97 99 Oximetry Medical Decision Making - Medical Decision Making Was pt. sent in by a medical professional or institution (, PA, CANOE MAKER, urgent care, hospital, or [facility]...) When possible be specific @ -No Did you speak to anyone other than the patient for history (EMS, parent, family, police, friend...)? What history was obtained from this source @ -No Did you review nursing and triage notes (agree or disagree)? Why? @ -I reviewed and agree with nursing and triage notes Were old charts reviewed (outside hosp., previous admission, EMS record, old EKG, old radiological studies, urgent care reports/EKG's, [facility] records)? Report findings @ -No old charts were reviewed Differential Diagnosis (chest pain, altered mental status, abdominal pain women, abdominal pain men, vaginal bleeding, weakness, fever, dyspnea, syncope, headache, dizziness, GI bleed, back pain, seizure, CVA, palpatations, mental health)? @ -Differential Back Pain: Strain, zoster, cauda equina syndrome, epidural abscess, vertebral osteomyelitis, discitis, fracture, subluxation, disc herniation, DJD, spinal stenosis, dissection, AAA, pancreatitis, peptic ulcer disease, pyelonephritis, kidney stone, this is not meant to be an all-inclusive list. EKG interpreted by me (3pts min.). @ -As above X-rays interpreted by me (1pt min.). @ -None done CT interpreted by me (1pt min.). @ Yes,CT of the abdomen and pelvis without contrast shows a nonobstructing left renal calculus. There is an exophytic hypodense area in the posterior upper pole of the right kidney which is likely a cyst U/S interpreted by me (1pt. min.). @ -None done What testing was considered but not performed or refused? (CT, X-rays, U/S, labs)? Why? @ -Considered imaging of the spine however there is no injury or vertebral tenderness What meds were considered but not given or refused? Why? @ -None Did you discuss the management of the patient with other professionals (professionals i.e. , PA, CANOE MAKER, lab, RT, psych nurse, social psychologist, council member, teacher, chemical instrumentation officer, director of casework department)? Give summary @ -No Was smoking cessation discussed for >3mins.? @ -No Was critical care preformed (if so, how long)? @ -No Were there social determinants of health that impacted care today? How? (Homelessness, low income, unemployed, alcoholism, drug addiction, transportation, low edu. Level, literacy, decrease access to med. care, longterm, rehab)? @ -No Was there de-escalation of care discussed even if they declined (Discuss DNR or withdrawal of care, Hospice)? DNR status @ -No What co-morbidities impacted this encounter? (DM, HTN, Smoking, COPD, CAD, Cancer, CVA, ARF, Chemo, Hep., AIDS, mental health diagnosis, sleep apnea, m orbid obesity)? @ -None Was patient admitted / discharged? Hospital course, mention meds given and route, prescriptions, significant lab abnormalities, going to OR and other pertinent info. @ -This is a 47-year-old male presenting with back pain. Clinical presentation consistent with mechanical back pain. No symptoms or signs of cauda equina. Due to concern for kidney stone laboratory studies and CT was obtained. Labs show mild TREY which was treated with IV fluids otherwise unremarkable. he is unable to give a urine due to giving one in urgent care prior to arrival however I did review the urinalysis which he brought showing mild hematuria and no evidence of infection. CT negative for kidney stone. Patient given pain medication in the emergency department with complete resolution of pain. Results discussed with patient. Patient feeling well and will be discharged home with symptomatic management. He is encouraged to perform light stretches and apply heat to his back for muscle strain. Undiagnosed new problem with uncertain prognosis? @ -No Drug Therapy requiring intensive monitoring for toxicity (Heparin, Nitro, Insulin, Cardizem)? @ -No Were any procedures done? @ -No Diagnosis/symptom? @ -Mechanical back pain Acute, or Chronic, or Acute on Chronic? @ -[Acute Uncomplicated (without systemic symptoms) or Complicated (systemic symptoms)? @ --uncomplicated Side effects of treatment? @ -No Exacerbation, Progression, or Severe Exacerbation? @ -No Poses a threat to life or bodily function? How? (Chest pain, [place], [place], pneumonia, PE, COPD, DKA, ARF, appy, cholecystitis, CVA, Diverticulitis, Homicidal, Suicidal, threat to staff... and all critical care pts) @ -No Dr. Savage is my attending - Lab Data Result diagrams: 11/13/22 15:24 11/13/22 15:24 Lab Results 11/13/22 11/13/22 Range/Units 15:24 15:24 WBC 8.4 (3.8-10.6) k/uL RBC 4.86 (4.30-5.90) m/uL Hgb 14.2 (13.0-17.5) gm/dL Hct 41.5 (39.0-53.0) % MCV 85.3 (80.0-100.0) fL MCH 29.2 (25.0-35.0) pg MCHC 34.2 (31.0-37.0) g/dL RDW 13.9 (11.5-15.5) % Plt Count 204 (150-450) k/uL MPV 9.0 Neutrophils % 68 % Lymphocytes % 18 % Monocytes % 8 % Eosinophils % 4 % Basophils % 0 % Neutrophils # 5.7 (1.3-7.7) k/uL Lymphocytes # 1.5 (1.0-4.8) k/uL Monocytes # 0.7 (0-1.0) k/uL Eosinophils # 0.4 (0-0.7) k/uL Basophils # 0.0 (0-0.2) k/uL Sodium 140 (137-145) mmol/L Potassium 4.3 (3.5-5.1) mmol/L Chloride 104 (98-107) mmol/L Carbon Dioxide 30 (22-30) mmol/L Anion Gap 6 mmol/L BUN 22 H (9-20) mg/dL Creatinine 1.29 H (0.66-1.25) mg/dL Est GFR (CKD-EPI)AfAm 76 (>60 ml/min/1.73 sqM) Est GFR (CKD-EPI)NonAf 66 (>60 ml/min/1.73 sqM) Glucose 99 (74-99) mg/dL Calcium 9.1 (8.4-10.2) mg/dL Total Bilirubin 0.7 (0.2-1.3) mg/dL AST 31 (17-59) U/L ALT 39 (4-49) U/L Alkaline Phosphatase 73 (38-126) U/L Total Protein 7.2 (6.3-8.2) g/dL Albumin 4.0 (3.5-5.0) g/dL Disposition Clinical Impression: Mechanical back pain Disposition: HOME SELF-CARE Condition: Good Instructions (If sedation given, give patient instructions): Acute Low Back Pain (ED) Additional Instructions: Take medication as directed. Do not drink alcohol or operate machinery while taking Flexeril as a colicky sleepy. Follow-up with animal care specialist in 1- 2 days. Return to the emergency department if you experience new, concerning, or worsening symptoms. Prescriptions: Cyclobenzaprine [Flexeril] 10 mg PO TID PRN #15 tab PRN Reason: Muscle Spasm Lidocaine 5% Patch [Lidoderm 5% Patch] 1 patch TOPICAL DAILY PRN #7 patch PRN Reason: Pain Ibuprofen [Motrin] 800 mg PO Q8HR PRN #30 tab PRN Reason: Pain Is patient prescribed a controlled substance at d/c from ED?: No Referrals: Inocencio Richards MD [Primary Care Provider] - 1-2 days Sydney Krueger DO [Doctor of Osteopathic Medicine] - 1-2 days
[2022-11-13 17:06] VITALS: BP 176/89; PULSE 83; RESP 14; TEMP 98.1
== END 2022-11-13 17:04 | disposition home or self-care (01) ==
LOC: EC 14:30
DX: M54.50 Low back pain, unspecified (principal); I10 Essential (primary) hypertension; Z79.899 Other long term (current) drug therapy
CPT/HCPCS: 36415; 80053; 85025; 74176; 99284; 96374; 96372; 96361; J2360; J1885